=== PATIENT | female | born 1985 | race Caucasian/White ===

== ENCOUNTER → 2017-05-21 | Outpatient (CLI) | payer OTHER ==
--- NOTE | 2017-05-21 17:57 | CT ---
EXAMINATION TYPE: CT pelvis w con DATE OF EXAM: 05/21/2017 COMPARISON: 02/16/2015 HISTORY: Pelvic pain and swelling on examination CT DLP: 619 mGycm Automated exposure control for dose reduction was used. CONTRAST: Performed with IV Contrast, patient injected with 100 mL of Omnipaque 300. FINDINGS: The visualized small appears normal. I see no intestinal wall thickening. There is no evidence of int estinal mass. There are multiple cysts in the pelvis. There are at least 3 and the largest measures 6 x 5 cm on the right side. Bladder distends smoothly. There is a small amount of free fluid in the pelvis. Uterus appears normal . I see no bony destructive process. IMPRESSION: MULTIPLE BILATERAL CYSTS ARE CONSISTENT WITH OVARIAN CYSTS AND THERE IS A CHANGING PATTERN OF THE CYS Ts COMPARED TO OLD CT SCAN. NO EVIDENCE OF A SOLID PELVIC MASS. THERE IS NEW MILD FREE FLUID IN THE CUL-DE-SAC COMPARED TO OLD EXAM.
== END | disposition home or self-care (01) ==
LOC: RADCTMAIN 15:42
PROVIDERS: ATTEND Family Medicine
DX: N64.89 Other specified disorders of breast (principal)
CPT/HCPCS: 72193; Q9967

== ENCOUNTER → 2017-11-01 | Outpatient (CLI) | payer OTHER ==
[2017-11-01 12:15] LABS: Basophils % (A) 1 %; Eosinophils # (A) 0.1 k/uL (0-0.7); Eosinophils % (A) 3 %; HCT 44.1 % (34.0-46.0); HGB 14.3 gm/dL (11.4-16.0); Lymphocytes # (A) 1.6 k/uL (1.0-4.8); Lymphocytes % (A) 43 %; MCH 28.8 pg (25.0-35.0); MCHC 32.4 g/dL (31.0-37.0); MCV 88.8 fL (80.0-100.0); Mean Platelet Volume 6.9; Monocytes # (A) 0.2 k/uL (0-1.0); Monocytes % (A) 5 %; Neutrophils # (A) 1.6 k/uL (1.3-7.7); Neutrophils % (A) 44 %; Platelet Count 204 k/uL (150-450); RBC 4.97 m/uL (3.80-5.40); WBC 3.6 k/uL (3.8-10.6)
[2017-11-01 12:24] LABS: Anion Gap 8 mmol/L; Blood Urea Nitrogen 10 mg/dL (7-17); Carbon Dioxide 27 mmol/L (22-30); Chloride 104 mmol/L (98-107); Glucose 98 mg/dL (74-99); Potassium 4.4 mmol/L (3.5-5.1); Sodium 139 mmol/L (137-145)
== END | disposition home or self-care (01) ==
LOC: LABPAT 11:43
PROVIDERS: ATTEND Obstetrics & Gynecology Obstetrics
DX: Z01.812 Encounter for preprocedural laboratory examination (principal); N80.9 Endometriosis, unspecified
CPT/HCPCS: 36415; 80051; 82565; 82947; 84520; 85025; 86850; 86900; 86901; 87086

== ENCOUNTER 2017-11-11 05:56 | Day surgery (SDC) | payer OTHER ==
[2017-10-30 16:35] VITALS: BMI 23.2
--- NOTE | 2017-11-10 13:46 | P.HPOB ---
History of Present Illness H&P Date: 11/10/17 Chief Complaint: Endometriosis, pelvic pain This is a 32yo G0, that presents for RAVH/possible BSO/DC. she has a long standing h/o endometriosis, dyschezia. menses have been irregular in nature in addition. she desires definitive treatment with Hysterectomy. she doesnt desire childbearing and is in a committed lesbian relationship. I did attempt to start Lupron but the pt was unable to obtain secondary to cost. she wants given the long standing history of pain definitive treatment. Review of Systems Constitutional: Denies chills, Denies fever Gastrointestinal: Denies hematochezia Genitourinary: Reports abnormal vaginal bleeding, Reports dysmenorrhea Menstruation: Reports cycle variable Past Medical History Past Medical History: No Reported History Additional Past Medical History / Comment(s): family hx colon cancer, has had abdominal pain, constipation and episode of dark black stool. gets heat rashes History of Any Multi-Drug Resistant Organisms: None Reported Additional Past Surgical History / Comment(s): wisdom teeth removed under general anesthesia, COLONOSCOPY Past Anesthesia/Blood Transfusion Reactions: No Reported Reaction Smoking Status: Former smoker - Past Family History Father Family Medical History: Pulmonary Embolus Medications and Allergies Home Medications Medication Instructions Recorded Confirmed Type Acetaminophen Tab [Tylenol Tab] 650 mg PO Q4H 10/30/17 10/30/17 History Naproxen Sodium [Aleve] 220 mg PO BID PRN 10/30/17 10/30/17 History Allergies Allergy/AdvReac Type Severity Reaction Status Date / Time No Known Allergies Allergy Verified 10/30/17 15:40 Exam Osteopathic Statement: *. No significant issues noted on an osteopathic structural exam other than those noted in the History and Physical/Consult. - OBG Physical Exam Abdomen: bowel sounds normal Vulva: both: normal Vagina: normal pink rugae Cervix: normal appearing no masses Uterus: normal size, nodular Adnexa: both: normal Anus/Rectum: normal perianal skin Assessment and Plan (1) Endometriosis Narrative/Plan: will plan [facility] possible BSO DC. surgery is reviewed in detail and questions answered. risks reviewed in detail including but not limited to infection bleeding damage to bladder bowel or ureteric unjury pt states understanding and wants to proceed, informed consent is obtained Status: Acute Code(s): N80.9 - ENDOMETRIOSIS, UNSPECIFIED SNOMED Code(s): 530997552 (2) Pelvic pain Status: Acute Code(s): R10.2 - PELVIC AND PERINEAL PAIN SNOMED Code(s): 01717768
[~2017-11-11 05:56] MED LIST: ACETAMINOPHEN IV (For NPO) 1,000 MG in EMPTY BAG 1 BAG IVPB ONE; DEXAMETHASONE SOD PHOSPHATE 10 MG/ML 1 ML VIAL IV ONE; LIDOCAINE 1% 20 ML VIAL (10MG/ML) FOR IV START INTRADERMA PRN; MIDAZOLAM 2 MG/2 ML VIAL IV PRN; ONDANSETRON 4 MG/2 ML VIAL IVP ONE; SCOPOLAMINE 1.5MG/72HR PATCH TRANSDERM ONE; ceFAZolin IN SWFI 2 GM/20 ML SYRINGE IVP ONE
[2017-11-11] MEDS: LACTATED RINGERS 1,000 ML IV SCH ×3 (06:39→12:57)
[2017-11-11] MEDS ORDERED: ePHEDrine SULFATE/0.9% NACL/PF 50 MG/5 ML SYRINGE IV ONE (07:44)
[2017-11-11] MEDS ORDERED: LIDOCAINE 1% INJ 10MG/ML (20 ML MDV) ONE (07:44)
[2017-11-11] MEDS ORDERED: PROPOFOL 10 MG/ML 20 ML VIAL IV ONE (07:44)
[2017-11-11] MEDS ORDERED: ROCURONIUM BROMIDE 10 MG/ML 10 ML VIAL IV ONE (07:44)
[2017-11-11] MEDS ORDERED: MIDAZOLAM 2 MG/2 ML VIAL ONE (07:44)
[2017-11-11] MEDS ORDERED: HYDROmorphone (PF) 1 MG/ML ONE (07:44)
[2017-11-11] MEDS ORDERED: GLYCOPYRROLATE 0.2 MG/ML 2 ML VIAL ONE (07:44)
[2017-11-11] MEDS ORDERED: fentaNYL (PF) 50 MCG/ML 2 ML AMP ONE (07:44)
[2017-11-11] MEDS ORDERED: NEOSTIGMINE 1 MG/ML 10 ML VIAL ONE (07:44)
[2017-11-11] MEDS ORDERED: ONDANSETRON 4 MG/2 ML VIAL IVP PRN (07:55)
[2017-11-11] MEDS ORDERED: SIMETHICONE 80 MG CHEWABLE PO PRN (07:55)
[2017-11-11] MEDS ORDERED: Acetaminophen-Codeine 300-30mg TAB PO PRN (07:55)
[2017-11-11] MEDS ORDERED: BUPIVACAINE (PF) 0.25% 30 ML VIAL SQ ONE (08:36)
[2017-11-11] MEDS ORDERED: METHYLENE BLUE 10 MG/ML (10 ML VIAL) MISCELLANE ONE (08:36)
--- NOTE | 2017-11-11 09:45 | P.OP ---
Date of Procedure: 11/11/17 Preoperative Diagnosis: Endometriosis, pelvic pain, endometrioma Postoperative Diagnosis: Same plus bilateral endometriomas significant pelvic adhesions and inflammation secondary to endometriosis Procedure(s) Performed: Robotic-assisted vaginal hysterectomy with bilateral salpingo-oophorectomy, diagnostic cystoscopy Anesthesia: PAULAA Surgeon: Sahara Samayoa Division [employer]: [employer] [place] Estimated Blood Loss (ml): 50 IV fluids (ml): 700 Urine output (ml): 100 Pathology: other (Uterus and bilateral ovaries) Condition: stable Disposition: PACU Indications for Procedure: This is a 32-year-old 0 intercurrent lesbian relationship with no desire for family planning that presented to me for counseling on definitive treatment for endometriosis. She has known endometriosis for many years now and states nothing is really helped with her discomfort. We did attempt to do a trial of Lupron but secondary to cost issues she was unable to obtain this. On ultrasound patient had a normal size uterus with right endometrioma. She stated that she wished definitive treatment with hysterectomy hormone therapy was discussed given the patient's age she understands and wished to proceed. Risks were reviewed with this descent in detail in the office including but not limited to infection bleeding damage to bladder bowel ureteric injury patient stated understanding and wished to proceed. Operative Findings: Slightly globular uterus with extensive inflammation bilateral endometriomas right ovary significantly enlarged with endometrioma, simple cysts encroaching into the broad ligament. Normal cystoscopy was performed after the procedure bilateral ureteral orifices were spilling clear yellow urine with a normal bladder cavity Description of Procedure: Patient was taken to the operating room where general anesthesia was obtained without difficulty by the anesthesia department. She was then prepped and draped in the normal sterile fashion in the dorsal lithotomy position. Lane catheter was then placed under sterile technique. A weighted speculum was placed in the posterior vaginal vault the anterior lip of the cervix was grasped with a single-tooth tenaculum and the VQ manipulator was advanced into the endometrial cavity as a means to manipulate the uterus during the procedure. Attention turned to the patient's abdomen where approximately 2 finger breast above the umbilicus a small skin incision is made. Through this incision the Veress needle was placed. Once the Veress needle was TBB in the proper position with insufflation of CO2 gas and a drop in CO2 pressure. Insufflation was allowed to occur an approximate 3 L of gas were used to obtain pneumoperitoneum. At this time the excision was elongated to 12 mm and a 12 mm trocar and sleeve was placed through the incision and toward the pneumoperitoneum. On inspection the patient's pelvis the above noted findings were visualized. . At this point additional port sites were placed at 10 cm lateral and 3 cm in anterior to the midline port. These are 8 mm ports and placed under direct visualization. In the left upper quadrant 12 mm trocar and sleeve was placed under direct visualization. At this point attention robot was docked in the usual fashion in the operative ports were placed in the right operative arm the monopolar scissors and the left operative arm the bipolar forceps is placed. Attention was then turned to the patient's right infundibulopelvic ligament which was visualized and grasped with the bipolar grasper coagulated 2 and transected. This then continued toward the broad and the ovary was then freed bluntly from the posterior aspect of the uterus/ peritoneal wall. Hemostasis was appreciated throughout. The round ligament was then visualized quite religiously proximally and divided. The bladder flap from the left was then created using sharp and blunt dissection. Attention was then turned to the patient's right nipple pelvic ligament. The ovary was significantly enlarged encroaching on the the broad ligament. This was freed bluntly from its posterior sidewall attachment/uterine attachment. The uterine ovarian ligament was coagulated distally and proximally and divided with good hemostasis noted this continued through the broad and toward the IP once the IP was coagulated distally and proximally this ovary was then placed into an Endo Catch bag and placed in the upper abdomen. Hemostasis was appreciated. Attention turned to the patient's right round ligament which was coagulated distally and proximally and divided. The bladder flap from the right was then created using sharp and blunt dissection. At this point the ascending branch of the uterine artery from the right was visualized quite limited and transected potential then turned to the left ascending branch of the uterine artery which was visualized coagulant and transected at this point out Ray-Ibeth was placed in the patient's pelvis as a means to move the bladder farther away from the operating field. Once the bladder was appropriately from operating field the colpotomy incision was performed in a circumferential fashion and the uterus was delivered through the vaginal opening. The pelvis is then copiously irrigated and hemostasis was appreciated. The Ray-Ibeth that was in prior was then removed at this time. The vaginal cuff was then closed with 0 Vicryl suture in a [id number] fashion 4. Hemostasis was appreciated. The 2 Endo Catch bags that the ovaries were then removed through the upper 12 mm abdominal port. The port sites were then closed with 4-0 Vicryl in a subcuticular fashion Steri-Strips and sterile dressings were applied as needed. In the left upper quadrant port site UR6 vicryl, was used to close the fascia of this one secondary to the Endo Catch bags coming through this port. At this time account had been done and all counts were correct 2 patient was then leveled slightly and the skin incisions were closed and Steri-Strips and sterile dressings were applied as needed. Turned the Patient's Lane Which the Catheter Was Removed without Difficulty and Cystoscopy Was Performed. The Cystoscope Was Placed in the Urethra, to the bladder and the bladder Bubble Is Noted. bth ureteral Orifices Were Noted to Be Superior Spilling Clear Yellow Urine.
[2017-11-11] MEDS: HYDROmorphone 0.5 MG/0.5 ML SYRINGE IVP PRN ×4 (10:10→10:40)
[2017-11-11] MEDS: SENNOSIDES-DOCUSATE SODIUM 1 EACH TAB PO SCH (10:57)
[2017-11-11 11:01] VITALS: RESP 16
[2017-11-11] MEDS: Acetaminophen-Codeine 300-30mg TAB PO PRN ×2 (14:08→23:18)
[2017-11-11] MEDS ORDERED: IBUPROFEN IV 800 MG in SODIUM CHLORIDE 0.9% 250 ML IV ONE (14:45)
[2017-11-12 08:06] LABS: Basophils % (A) 0 %; Eosinophils % (A) 0 %; HCT 39.8 % (34.0-46.0); HGB 12.8 gm/dL (11.4-16.0); Lymphocytes # (A) 1.9 k/uL (1.0-4.8); Lymphocytes % (A) 21 %; MCH 28.1 pg (25.0-35.0); MCHC 32.2 g/dL (31.0-37.0); MCV 87.3 fL (80.0-100.0); Monocytes # (A) 0.4 k/uL (0-1.0); Monocytes % (A) 4 %; Neutrophils # (A) 6.4 k/uL (1.3-7.7); Neutrophils % (A) 73 %; Platelet Count 214 k/uL (150-450); RBC 4.56 m/uL (3.80-5.40); RDW 13.5 % (11.5-15.5); WBC 8.8 k/uL (3.8-10.6)
--- NOTE | 2017-11-12 08:28 | P.PN ---
Subjective Progress Note Date: 11/12/17 Principal diagnosis: Postoperative day #1 status post robotic-assisted vaginal hysterectomy with bilateral sopping oophorectomy Patient is doing well on this postoperative day #1. She is a bleeding and voiding without difficulty. She states her pain is controlled with oral medications. She is tolerating regular diet without nausea or vomiting and states she is wishing to go home Objective - Vital Signs Vital signs: Vital Signs Temp 97.8 F 11/11/17 13:43 Pulse 79 11/11/17 13:43 Resp 16 11/11/17 13:43 BP 116/74 11/11/17 13:43 Pulse Ox 98 11/11/17 12:43 Intake & Output 11/11/17 11/12/17 11/12/17 18:59 06:59 18:59 Intake Total 2200 Output Total 350 850 450 Balance 1850 -850 -450 Weight 69.4 kg Intake: IV 2200 Lactated Ringers 1,000 ml 1000 @ 20 mls/hr IV .Q24H MOUNIKA Rx#:[id number] Output: Urine 300 850 450 Estimated Blood Loss 50 Other: Voiding Method Indwelling Catheter # Voids 0 1 - Constitutional General appearance: Present: average body habitus, cooperative - Gastrointestinal General gastrointestinal: Present: normal bowel sounds - Labs CBC & Chem 7: 11/12/17 07:42 Assessment and Plan (1) Endometriosis Narrative/Plan: We'll plan discharge home today. The start instructions are discussed the patient in detail and all questions are answered. If she has any questions prior to her postoperative appointment in 2 weeks she is urged to call the office and set up an appointment sooner than that. Current Visit: Yes Status: Acute Code(s): N80.9 - ENDOMETRIOSIS, UNSPECIFIED SNOMED Code(s): 034390331 (2) Pelvic pain Current Visit: Yes Status: Acute Code(s): R10.2 - PELVIC AND PERINEAL PAIN SNOMED Code(s): 14441647
--- NOTE | 2017-11-12 08:30 | P.DS ---
Providers Date of admission: 11/11/2016 Expected date of discharge: 11/12/17 Attending physician: Sahara Samayoa Primary care physician: Stated None - Discharge Diagnosis(es) (1) Endometriosis This is a 32-year-old 0 that presented yesterday for robotic vaginal hysterectomy secondary to endometriosis and pelvic pain. For further details on the surgery please see the operative report. Patient's postoperative course has been benign on postop day 1 she is a lean voiding without difficulty. She is tolerating regular diet without nausea or vomiting. She has stating her pain is controlled with oral medications and she wishes to be discharged home. Current Visit: Yes Status: Acute (2) Pelvic pain Current Visit: Yes Status: Acute Patient Condition at Discharge: Good Plan - Discharge Summary Discharge Rx Participant: No New Discharge Prescriptions: No Action Naproxen Sodium [Aleve] 220 mg PO BID PRN PRN Reason: Pain Acetaminophen Tab [Tylenol Tab] 650 mg PO Q4H Discharge Medication List Acetaminophen Tab [Tylenol Tab] 650 mg PO Q4H 10/30/17 [History] Naproxen Sodium [Aleve] 220 mg PO BID PRN 10/30/17 [History] Follow up Appointment(s)/Referral(s): Sahara Samayoa DO [Doctor of Osteopathic Medicine] - 2 Weeks Patient Instructions/Handouts: Laparoscopic Hysterectomy (DC) Discharge Disposition: HOME SELF-CARE
[2017-11-12] MEDS: Acetaminophen-Codeine 300-30mg TAB PO PRN (09:01)
[2017-11-12] MEDS: SENNOSIDES-DOCUSATE SODIUM 1 EACH TAB PO SCH (09:02)
[2017-11-12 09:29] VITALS: BP 115/73; PULSE 88; TEMP 98.2
== END 2017-11-12 09:12 | disposition home or self-care (01) ==
LOC: OR 05:56 → 4FBP 09:45 → OR 11-12 09:12
PROVIDERS: ATTEND Obstetrics & Gynecology Obstetrics
DX: N80.0 Endometriosis of uterus (principal); N80.2 Endometriosis of fallopian tube; N80.1 Endometriosis of ovary; N83.291 Other ovarian cyst, right side; N73.6 Female pelvic peritoneal adhesions (postinfective); Z80.0 Family history of malignant neoplasm of digestive organs; Z87.891 Personal history of nicotine dependence; Z79.899 Other long term (current) drug therapy
CPT/HCPCS: 58552; S2900; 81025; 85025; 86850; 86900; 86901; 88307

== ENCOUNTER → 2021-05-10 | Outpatient (CLI) | payer OTHER ==
--- NOTE | 2021-05-11 08:02 | XR ---
EXAMINATION TYPE: XR nasal bone DATE OF EXAM: 05/10/2021 COMPARISON: NONE HISTORY: Pressure through jaw with drainage. Trauma to bridge of nose 3 days ago. FINDINGS: AP, 2 lateral views, and Dela Cruz' view were obtained. Nasal bone radiographic study was obta ined. No definite evidence of fracture or dislocation of the nasal bone. No radiopaque foreign body. IMPRESSION: 1. No definite radiographic evidence of fracture or dislocation of the nasal bone.
== END | disposition home or self-care (01) ==
LOC: RADXRMAIN 15:41
PROVIDERS: ATTEND Family Medicine
DX: J01.90 Acute sinusitis, unspecified (principal)
CPT/HCPCS: 70160

== ENCOUNTER → 2023-01-21 | Outpatient (CLI) | payer OTHER ==
--- NOTE | 2023-01-21 17:51 | CT ---
EXAMINATION TYPE: CT abdomen pelvis wo con CT DLP: 640.10 mGycm, Automated exposure control for dose reduction was used. DATE OF EXAM: 01/21/2023 5:06 PM COMPARISON: CT pelvis most recent from 05/21/2017 CLINICAL INDICATION:Female, 37 years old with history of Kidney stone protocol; hematuria. poss kidne y stone TECHNIQUE: Axial CT of the abdomen and pelvis. Sagittal and coronal reformats were created on a [employer] workstation. Contrast used: None Oral contrast used: without Oral Contrast FINDINGS: LOWER CHEST: Unremarkable ABDOMEN LIVER: Unremarkable GALLBLADDER AND BILE DUCTS: Unremarkable. PANCREAS: Unremarkable. SPLEEN: Unremarkable. ADRENAL GLANDS: Unremarkable. KIDNEYS AND URETERS: No evidence of hydronephrosis or renal calculus. The ureters are unremarkable. PELVIS BLADDER: Unremarkable REPRODUCTIVE: The uterus is surgically absent. Ovaries are not definitively visualized may be surgica lly absent. ABDOMEN & PELVIS STOMACH AND BOWEL: No evidence of bowel obstruction. Appendix is normal. PERITONEUM/RETROPERITONEUM: No evidence of pneumoperitoneum or free fluid. VASCULATURE: No evidence of aortic aneurysm. MUSCULOSKELETAL: No acute osseous abnormalities LYMPH NODES: No gross evidence for lymphadenopathy. SOFT TISSUE/ABDOMINAL WALL: Unremarkable IMPRESSION: 1. No evidence for obstructive uropathy or renal calculus. 2. No acute intracranial process.
== END | disposition home or self-care (01) ==
LOC: RADCTMAIN 16:48
PROVIDERS: ATTEND Family Medicine
DX: R31.9 Hematuria, unspecified (principal); Z87.442 Personal history of urinary calculi
CPT/HCPCS: 74176

== ENCOUNTER → 2024-10-29 | Outpatient (CLI) | payer OTHER ==
[2024-10-29 15:49] LABS: Chol/HDL Ratio 5.53 Ratio; LDL Cholesterol,Calculated 213.2 mg/dL (0.0-131.0)
== END | disposition home or self-care (01) ==
LOC: LABWHC1 10:58
PROVIDERS: ATTEND Family Medicine
DX: Z00.00 Encounter for general adult medical examination without abnormal findings (principal)
CPT/HCPCS: 36415; 80061; 83036